=== PATIENT | male | born 1990 | race Caucasian/White ===

== ENCOUNTER 2021-01-31 16:50 | Emergency (ER) | payer MEDICAID ==
[~2021-01-31] VITALS: Ht 185.4 cm; Wt 75.0 kg
[~2021-01-31 16:50] MED LIST: AMOXICILLIN500 M1 PO; NORVASC10 MG PO; ORAL ANALGESIC9 GM TOPICAL; TYLENOL W/CODEI1 TAB PO
[2021-01-31 16:56] VITALS: BP 117/75; Ht 185.4 cm; Wt 75.0 kg
== END 2021-01-31 19:00 | disposition left against medical advice (07) ==
LOC: D.ER 16:50
DX: R10.9 Unspecified abdominal pain (principal)